=== PATIENT | female | born 1970 | race Hispanic/Latino ===

== ENCOUNTER 2021-08-03 09:30 | Outpatient (AMB) | payer BC, SELFPAY ==
--- NOTE | 2021-09-04 10:01 | CWCCLINC_ITS ---
[facility] Social Work Assessment Intake Visit Date: 08/03/21 Conference Time: 09:30 (am) Conference Visit Location: [facility] via phone conference Visit Participants: Jayna Coelho-patient, Maria Guadalupe Sood-MANAGER COMPENSATION, Dr. Bebeto Winslow Referral Source: Inital Visit Despatch Clerk: No List Name, Facility and location of PCP: [facility] on [address] Preliminary Information History provided by: Patient Diagnosis: Suspected Mets with Liver Cancer Prognosis: Fair Goal of Care: Life Prolonging (Feel better and be able to go back to work and feel Normal. 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 Patient completed DONA disability paperwork on 07/28/21.) Patient educational status: Some education (Certification for MAILROOM MESSENGER, MA, and Phlebotomy) Financial Status: Marginal (Using savings at this time. She is pending DONA disability benefits. She purchased her home about a year ago and has felt stressed due to the housing payment for future appointments. Patient was not interested in community resources at this time. Patient receives food stamps for her son.) Patient housing status: House Patient lives with: Family (Her 17 year old son who would be turning 18 in August. ) Support system: Good (Patient has support from all her children including her 30 year old and 26 year old daughters. She reported she has couple friends who also provide support and check on her. SHe reported her siblings and family all live in [place], [place]. Patient 12 years ago. ) ADL's Getting dressed: Yes Personal Hygiene: Yes Feeding: Yes Ambulate: Yes Continence management: Yes Prepare meals: Yes Transportation: No (Children provide transportation. ) seat joiner chainstitch: Yes, with help (Her son and daughters help.) Manage medications: Yes Manage finances: Yes Patient has the following @ home: None Personal Home Equipment comment: Patient does not use Home O2. Pt declined needing a walker or other DME. Ambulation ability: Ambulates independently (Patient reported no falls. She reported she knows her limitations. ) Oriental Orthodox/Spirituality: Patient reported she was raised Restorationist. She no longer practices her Restorationist enmanuel. However, she reported she does believe in God. Cognitive/Emotional Status Mental status: Alert and Oriented Judgement: Good Emotional status: Normal Coping status: Coping w/some difficulty Learning needs: Motivational Depression screening score: 0 (Completed PHQ-2 screening patient scored 0. Patient declined feeling depressed. ) Anxiety screening score: 13 (SATURNINO-7 screening completed 13-moderate anxiety. Discussed coping strategies. Engaged patient in practicing Deep Breathing exercises and discussed benefits. ) Additional comments: Jayna Coelho is a 51 year old female who is pending work-up to obtain cancer diagnosis. Mood and affect was within normal limits and thought process was congruent with thought content. Patient able to communicate effectively. Processed with patient her thoughts and feelings regarding her illness. Patient was tearful as she expressed her thoughts and feelings. Patient was provided with active listening. plastic worker validated her feelings and provided emotional support. MANAGER COMPENSATION introduced herself and role. Discussed limits of confidentiality. No signs of delusion or hallucinations during the call. Patient declined SI/HI. Patient declined drug or alcohol abuse. Patient declined past mental health history. Patient declined having diagnosis of a developmental or learning disorder. She does not smoke. She is able to read and write. Patient reported anxiety revolves around her current health problems and waiting for a diagnosis. Patient declined feeling depressed. Patient reported jagjit by watching T.V., goes out to the backyard and looks at her plants, does a word search, and reads. Engaged patient in education and practicing deep breathing exercises, explained, and discussed Mindfulness. Discussed warm line with patient as well. Advanced Care planning Advacned care plan discussed: Yes Social Service Decision Making Status: Makes Own Decisions (Provided education on ADVDIR/POLST. Patient was receptive to the education. Mailed documents. ) Primary Decision Maker: Yvonne Coelho, daughter Anticipated needs Counseling Center Director Patient Concerns: Adjustment to Illness (Educated on Mindfull ness and Deep Breathing exercises. ) and Financial Issues (Has applied for DONA disability) Additional Note Additional Visit Nurse notes: W: 140lbs H: 5'1 Biopsy pending for 08/08/21 No treatment pending biopsy Pain: Back hurts. Sleeps on side the side to reduce discomfort. Constipation: Does not go everyday possibly due to not eating. She reported cramps when trying to use the bathroom. No diarrhea no wounds. She reported bloated belly. Nausea: Daily and is taking Zofran but not helping much. Dr. Winslow prescribed a medication recently. Patient has not picked it up, but will have her son pick it up. Vomiting: She is only able to keep liquid down. Appetite: Tries to eat healthy. She is trying anything to keep some nutrition. She does juicing. If she eats food she does vomit. She agreed to speak to the dietitian. Sleep: Not so good before. She reported sleep improved after she began taking gummies with Marijuana. She reported she rather take the gummies than medication at this time to sleep. She is sleeping 8-10 hours. She is feeling rested and wakes up well in the morning. Energy: She reported poor energy. She reported weakness. Discussed fatigue management: take breaks, prioritize, break task down, and ask for help. Dr. Winslow was informed of symptoms. Dr. Winslow recommended ER visit if symptoms persist. Patient does wants to avoid the ER as much as possible and would like to first have her Biopsy in August. She agreed to go to the ER if symptoms persist.
== END 2021-08-03 11:10 | disposition home or self-care (01) ==
LOC: HODCWC 08-04 09:08
PROVIDERS: PCP Radiology Therapeutic Radiology; Referring Provider Radiology Therapeutic Radiology; Visit Provider Radiology Therapeutic Radiology